=== PATIENT | female | born 1930 | race Caucasian/White ===

== ENCOUNTER → 2016-10-16 | Outpatient (CLI) | payer MEDICARE, MEDICAID ==
[~2016-10-16] MED LIST: aspirin PO; benicar PO; coreg PO; hydralazine PO; metformin PO; tramadol PO
--- NOTE | 2016-10-16 17:21 | RADRPT ---
PROCEDURE: XR Knees. CLINICAL INDICATION: Bilateral knee pain. TECHNIQUE: Total of six views. Frontal, oblique, and lateral views of both knees. COMPARISON: No prior study is available for comparison. FINDINGS: There are bilateral total knee arthroplasties. These appear satisfactory with no fracture, dislocat ion, or loosening. Vascular calcifications are present consistent with atherosclerosis. There is no joint effusion. There is no lytic or blastic lesion. IMPRESSION: 1. Satisfactory postoperative appearance of both knees. 2. Atherosclerosis. RPTAT: QQ .Santy Razo MD, MD Date Time Electronically viewed and signed by .Santy Razo MD, MD on 10/16/2016 17:21 .R/
--- NOTE | 2016-10-16 20:52 | HKNOTE ---
DATE OF SERVICE: 10/16/2016 MAIN COMPLAINT: Pain in both knees and legs. HISTORY OF MAIN COMPLAINT: The patient is an 86-year-old female who underwent bilateral knee replac ements which were performed by me in 1997 and 2004. The right knee was done in 1997, left knee in . The patient has been very pleased with the result of the surgery. She now complains of pain i n her right leg which has been present for about a year. She is not sure if the pain is in the knee . She has not had any recent infections. The patient has a long history of sciatica. PRESENT COMPLAINTS: The pain in the right knee radiates up and down the leg. Pain radiates to the right buttock. Pain is aggravated by walking, weightbearing and stair climbing. She is taking Voltaren gel and Ambien for the pain. She has also tried tramadol. Nothing seems to help. She gets numbness and tingling in her right foot and toes, and she also gets muscle spasms in the right leg. On a level surface, she can walk about 20 feet with a walker. She limps all the ti me. She does not have a shoe lift. She can put on her shoes and socks. PAST ORTHOPEDIC HISTORY: Bilateral knee replacements as noted above. PRIOR CORTISONE INTAKE: The patient has had cortisone lumbar epidural injections in 2011. ALCOHOL INTAKE: None. OTHER JOINT PROBLEMS: None. BLOOD TESTS FOR ARTHRITIS: None. PRIOR INJURIES TO HIPS OR KNEES: None. WORK STATUS: Patient retired. PAST MEDICAL HISTORY 1. Hypertension. 2. Diabetes mellitus. 3. Hypercholesterolemia. 4. "Arthritis." PAST SURGICAL HISTORY: Bilateral knee replacements as noted above. ALLERGIES: DEMEROL. MEDICATIONS: 1. Metformin. 2. Invokana. 3. Isosorbide. 4. Aspirin. 5. Aldactone. 6. Lipitor. 7. Timolol. FAMILY HISTORY: Noncontributory. SYSTEMS REVIEW: Prone to dizzy spells. ____ failing vision. History of blood clots, excess urinat ion, excess night urination, varicose veins, tingling sensations in her right foot and in her right hand, also numbness in the same area. Gait disturbance. Hypertension, occasionally difficult breat graciela, diabetes, leakage of urine, swelling of the ankles and habitual constipation. HABITS: The patient does not smoke or drink alcoholic beverages. 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 Briseno, [address] [facility], [address], [place] [id number]. PHYSICAL EXAMINATION: GENERAL: The patient is a rather fragile-looking 86-year-old female who I remember well. She looks rather spry for her age. She comes in with her daughter. VITAL SIGNS: Height 5 feet 3 inches. Weight 180 pounds. Blood pressure 160/70, temperature 98.6. GAIT: The patient walks with a walker ("because I have poor balance"). NEUROLOGIC: Motor examination reveals no muscle deficit in the lower extremities. Deep tendon refle xes in the lower extremities: Right knee jerk +, left knee jerk +, right ankle jerk +, left ankle j erk +. Straight leg raising is positive on the right at 75, positive on the left at 75. Lasegue and PATRICIA tests are negative. There is some weakness of her left foot dorsiflexors. HIPS: Both hips have a full range of motion without pain. RIGHT KNEE: Scar of previous knee replacement. Remarkably full range of motion without pain. No e xternal sign of infection or inflammation. LEFT KNEE: Extension is full, flexion is to 110 degrees. No external sign of infection or inflamma tion. Pain on forced flexion. IMAGING: Plain x-rays of her knees obtained today show perfect bilateral knee replacements. All co mponents are well attached to the bone except for minimal lucency behind the femoral flange on the r ight side and more extensive lucency behind the femoral flange the left side. DISCUSSION: Although there is some lucency behind the femoral flange on the left side, she has abso lutely no pain in the left knee. Certainly I do not believe her pain is coming from her knees. She has a long history of sciatica, and she has some ____ sciatica. MANAGEMENT: The patient is being sent for an MRI scan of her lumbar spine, and she will be seen aga in in 2 weeks' time for re-evaluation. DIAGNOSES: 1. Check bilateral knee replacements. 2. Low back pain with bilateral sciatica. 3. Diabetes. 4. Hypertension. 5. Hypercholesterolemia. 6. ALLERGIC TO DEMEROL. Dictated By: CEASAR THIBODEAUX/BUD Conf#: [id number] [facility]#: [id number] CC: Suzanna;*Radha*
== END | disposition home or self-care (01) ==
LOC: HKI 14:26
DX: M54.42 Lumbago with sciatica, left side (principal); M54.41 Lumbago with sciatica, right side; E11.9 Type 2 diabetes mellitus without complications; I10 Essential (primary) hypertension; Z96.653 Presence of artificial knee joint, bilateral; E78.00 Pure hypercholesterolemia, unspecified; M19.90 Unspecified osteoarthritis, unspecified site; Z88.6 Allergy status to analgesic agent
CPT/HCPCS: 73562; G0463